=== PATIENT | male | born 1980 | race Caucasian/White ===

== ENCOUNTER 2019-01-08 10:24 | Outpatient (CLI) | payer MEDICARE, MEDICAID | END 2019-01-08 23:59 | disposition home or self-care (01) | LOC: RAD 10:24 | PROVIDERS: ATTEND Physician Assistant | DX: R55 Syncope and collapse (principal); G93.89 Other specified disorders of brain; R20.2 Paresthesia of skin; H53.139 Sudden visual loss, unspecified eye; R06.4 Hyperventilation; F17.200 Nicotine dependence, unspecified, uncomplicated | CPT/HCPCS: 95816 ==